=== PATIENT | male | born 1995 | race African-American/Black ===

== ENCOUNTER 2018-11-22 10:12 | Emergency (ER) | payer MEDICAID ==
[~2018-11-22] VITALS: Ht 180.3 cm; Wt 65.0 kg
[2018-11-22] MEDS ORDERED: KETOROLAC 30MG/ML VIAL IV STA (11:10)
[2018-11-22] MEDS ORDERED: HYDROCODONE/ACETAMINOPHEN 5/325MG TABLET PO STA (11:10)
[2018-11-22 11:55] LABS: BASOPHILS % 1.5 % (0.0-2.0); HEMATOCRIT. 41.7 % (42.0-52.0); HEMOGLOBIN. 14.2 g/dL (14.0-18.0); LYMPHOCYTES % 27.4 % (20.0-50.0); MEAN CORPUSCULAR HEMOGLOBIN 33.2 pg (28.0-32.0); MEAN CORPUSCULAR VOLUME 97.2 fL (80.0-94.0); MEAN PLATELET VOLUME 8.2 fl (7.4-10.4); MONOCYTES % 7.8 % (2.0-8.0); NEUTROPHILS % 59.3 % (40.0-76.0); PLATELET 262 x1000/uL (130-400); RED BLOOD CELL COUNT 4.29 mill/uL (4.7-6.1); RED CELL DISTRIBUTION WIDTH 12.2 % (11.6-14.6)
[2018-11-22 11:56] LABS: CHLORIDE 106 mEq/L (98-107)
[2018-11-22 11:58] LABS: PROTHROMBIN TIME 10.6 sec (9.6-11.0)
[2018-11-22 12:10] VITALS: BP 116/84
== END 2018-11-22 12:16 | disposition left against medical advice (07) ==
LOC: ER 12:07
DX: S10.93XA Contusion of unspecified part of neck, initial encounter (principal); J45.909 Unspecified asthma, uncomplicated; F17.210 Nicotine dependence, cigarettes, uncomplicated; Y08.89XA Assault by other specified means, initial encounter; Y93.9 Activity, unspecified; Y92.9 Unspecified place or not applicable
CPT/HCPCS: 36415; 80053; 85025; 85610; 96374; 99283; J1885